=== PATIENT | male | born 1955 | race Caucasian/White ===

== ENCOUNTER 2017-02-01 19:52 | Emergency (ER) | payer MEDICARE ==
[~2017-02-01] VITALS: Ht 175.3 cm; Wt 77.3 kg
[2017-02-01 20:17] VITALS: BP 167/100; PULSE 106; RESP 16; O2SAT 97
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
[2017-02-01 23:44] VITALS: BP 141/88; PULSE 73; O2SAT 97
[2017-02-02] MEDS ORDERED: Dexamethasone 20 mg/2 mL Oral Solution PO ONE (00:25)
[2017-02-02] MEDS ORDERED: HYDROcodone-APAP 5-325 mg Tablet PO ONE (00:25)
[2017-02-02] MEDS ORDERED: DXM4T PO (00:29)
[2017-02-02] MEDS ORDERED: HYDR-4003 PO (00:29)
[2017-02-02 00:51] VITALS: PULSE 82; RESP 16
--- NOTE | 2017-02-02 08:28 | DRSVH ---
PROCEDURE: MRI LUMBAR SPINE WITHOUT CONTRAST ([id number]) INDICATIONS: Incontinence, weakness TECHNIQUE: Noncontrast sagittal T1 spin echo and T2 fast echo, coronal T2, sagittal STIR, axial T1 and T2 fast s pin echo through the lumbar spine. COMPARISON: [facility], CR, ABD/AP 1VW, 05/14/2009, 14:11. [facility], CT, CT KUB, 09/28/2016, 14:57. FINDINGS: Image quality: Excellent. Alignment and Curvature: 5 lumbar type vertebral bodies are present by CT. There is mild leftward cur vature of the mid and lower lumbar spine, and otherwise normal bony alignment. Bone Marrow: Marrow is of normal overall signal. No acute vertebral body compression fractures. Th ere is mild reactive signal within the endplates adjacent to the L1-L2, L4-L5, and L5-S1 intervertebr al discs. Moderate reactive signal within the endplates adjacent to the L2-L3 and L3-L4 intervertebra l discs. Spinal Cord: Conus medullaris terminates at the T12-L1 disc space level. Visualized cord demonstrat es normal signal and size. Paraspinous Soft Tissues: No paravertebral masses. L1-L2: Disc height loss and desiccation, as well as diffuse disc bulge. Bilateral facet and ligamentu m flavum hypertrophy. Mild canal stenosis. Mild left greater than right foraminal stenosis. L2-L3: Disc height loss and desiccation, as well as diffuse disc bulge. Bilateral facet and ligament of a moderate degree. Mild canal stenosis. Mild foraminal stenosis bilaterally. L3-L4: Disc height loss and desiccation, as well as diffuse disc bulge. Bilateral facet and ligamentu m flavum hypertrophy. Mild canal stenosis. Moderate bilateral foraminal stenosis. L4-L5: Disc height loss and desiccation, as well as diffuse disc bulge. Bilateral facet and ligamentu m flavum hypertrophy. Moderate canal stenosis. Moderate foraminal stenosis bilaterally. L5-S1: Disc height loss and desiccation, as well as diffuse disc bulge. Bilateral facet and ligamentu m flavum hypertrophy. Mild canal stenosis. Mild foraminal stenosis bilaterally. IMPRESSION: 1. No acute process. 2. Multilevel degenerative disc and facet disease, causing multilevel canal stenoses, worst at L4-L5. 3. Multilevel foraminal stenoses, worst at L3-L4 and L4-L5 bilaterally. Dictated by: Misael Nichols M.D. on 02/02/2017 at 8:20 Approved by: Misael Nichols M.D. on 02/02/2017 at 8:26
== END 2017-02-02 00:40 | disposition home or self-care (01) ==
LOC: SED 19:57
DX: M51.36 Other intervertebral disc degeneration, lumbar region (principal); G83.4 Cauda equina syndrome; R51 Headache; J45.909 Unspecified asthma, uncomplicated; F17.200 Nicotine dependence, unspecified, uncomplicated
CPT/HCPCS: 72148; 96372; 99284; G0463; J1885